=== PATIENT | male | born 1950 ===

== ENCOUNTER 2024-11-30 08:00 | Outpatient (CLI) | payer OTHER ==
[~2024-11-30] VITALS: Ht 172.7 cm; Wt 108.4 kg
[2024-11-30] MEDS ORDERED: HYDROCHLOROTHIA50 MG PO (13:26)
[2024-11-30] MEDS ORDERED: ZESTRIL40 M1 PO (13:26)
[2024-11-30] MEDS ORDERED: METFORMIN HCL500 M3 PO (13:27)
[2024-11-30] MEDS ORDERED: ATORVASTATIN CA80 MG PO (13:27)
[2024-11-30 15:05] LABS: RH POSITIVE
== END 2024-11-30 08:01 | disposition home or self-care (01) ==
LOC: LAB 08:00 → SURH 12-06 10:00 → EDSTATUS 12-06 12:00
PROVIDERS: ATTEND Surgery
DX: C18.5 Malignant neoplasm of splenic flexure (principal); R59.0 Localized enlarged lymph nodes; K92.1 Melena; E66.9 Obesity, unspecified